=== PATIENT | male | born 1965 | race Caucasian/White ===

== ENCOUNTER 2018-03-19 12:02 | Emergency (ER) | payer OTHER ==
--- NOTE | 2018-03-19 12:53 | EDPHY ---
H & P Time Seen by Provider: 03/19/18 12:43 HPI/ROS: CHIEF COMPLAINT: Head injury HISTORY OF PRESENT ILLNESS: The patient is a 52-year-old male who presents emergency department after having a fainting episode last night. The patient states that he worked out may have been dehydrated. He went to work democr[employer] and had a glass of wine. He subsequently had 2 puffs of marijuana. He then had a syncopal episode. He struck the back of his head. He has a mild headache on his posterior head. He has no focal weakness or numbness. No nausea vomiting. No visual change. Patient denies any neck pain REVIEW OF SYSTEMS: 10 systems were reveiwed and are negative with the exception of the elements mentioned in the history of present illness. Past Medical/Surgical History: Negative Social history: Patient used marijuana last night. He had a drink of alcohol last night. Smoking Status: Never smoked Physical Exam: Vitals noted GENERAL: Well-appearing, in no acute distress, alert. HEENT: Eyes normal to inspection, normal pharynx, no signs of dehydration. NECK: Normal, supple. Nexus criteria negative. No tenderness to palpation RESPIRATORY: Clear to auscultation bilaterally, no rales, rhonchi or wheezing. CVS: Regular rate and rhythm, no rubs, murmurs, or gallops. ABDOMEN: Soft, nontender, nondistended, no organomegaly. BACK: Normal to inspection, no CVA tenderness. No spinal tenderness SKIN: Normal color, no rash, warm, dry. No pallor. EXTREMITIES: No pedal edema, no calf tenderness, no Homans sign or cords, no joint swelling. NEURO/PSYCH: Higher functions: Alert and Oriented x3. Normal speech and cognition. Normal mood and affect. Cranial nerves: Normal as tested. Cerebellar: Normal as tested. Good finger to nose, good [id number], normal gait. Peripheral exam: Normal motor exam. Normal sensation. Constitutional: Initial Vital Signs Temperature (C) 36.7 C 03/19/18 12:10 Heart Rate 73 03/19/18 12:10 Respiratory Rate 18 03/19/18 12:10 Blood Pressure 146/75 H 03/19/18 12:10 O2 Sat (%) 98 03/19/18 12:10 O2 Delivery Mode Room Air Allergies/Adverse Reactions: Penicillins Allergy (Unknown, Verified 03/19/18 12:16) as child Home Medications: Medication Instructions Recorded NK [No Known Home Meds] 03/19/18 Medical Decision Making - Diagnostics Imaging Results: Imaging Impressions Head CT 03/19/18 12:57 Impression: Negative noncontrast CT of the brain. 10 mm focus of cortical calcification involving the posterior high right parietal region which may be secondary to prior trauma or infectious/inflammatory etiology. Results called to Dr. Aurora Guaman at 1:30 PM at the time of the interpretation. ED Course/Re-evaluation: In the emergency department I discussed possible etiologies with the patient. I answered all his questions. An IV was placed. Patient given normal saline 5 mL IV for hydration. Laboratory studies and EKG were ordered. Because the patient's fall and headache head CT was ordered. EKG shows normal sinus rhythm, normal rate, normal axis, normal intervals. There are no ST or T-wave abnormalities. EKG is normal as interpreted by me. Head CT: Please refer the dictated report. No acute disease noted. I discussed the results with the patient. I answered all his questions. He was given warnings prior to leaving. He will return with worsening symptoms. Differential Diagnosis: My differential includes but is not limited to syncope, ACS, dysrhythmia, electrolyte abnormality, sugar abnormality, dehydration, closed-head injury, subarachnoid hemorrhage, subdural hematoma, epidural hematoma - Data Points Laboratory Results: Laboratory Results 03/19/18 13:14 03/19/18 13:14 03/19/18 03/19/18 03/19/18 13:16 13:14 13:14 WBC 6.40 10^3/uL 10^3/uL (3.80-9.50) RBC 4.54 10^6/uL 10^6/uL (4.40-6.38) Hgb 13.9 g/dL g/dL (13.7-17.5) Hct 41.1 % % (40.0-51.0) MCV 90.5 fL fL (81.5-99.8) MCH 30.6 pg pg (27.9-34.1) MCHC 33.8 g/dL g/dL (32.4-36.7) RDW 13.2 % % (11.5-15.2) Plt Count 194 10^3/uL 10^3/uL (150-400) MPV 11.4 fL fL (8.7-11.7) Neut % (Auto) 64.6 % % (39.3-74.2) Lymph % (Auto) 25.5 % % (15.0-45.0) Greenlee % (Auto) 8.3 % % (4.5-13.0) Eos % (Auto) 0.3 % L % (0.6-7.6) Baso % (Auto) 1.1 % % (0.3-1.7) Nucleat RBC Rel Count 0.0 % % (0.0-0.2) Absolute Neuts (auto) 4.14 10^3/uL 10^3/uL (1.70-6.50) Absolute Lymphs (auto) 1.63 10^3/uL 10^3/uL (1.00-3.00) Absolute Monos (auto) 0.53 10^3/uL 10^3/uL (0.30-0.80) Absolute Eos (auto) 0.02 10^3/uL L 10^3/uL (0.03-0.40) Absolute Basos (auto) 0.07 10^3/uL 10^3/uL (0.02-0.10) Absolute Nucleated RBC 0.00 10^3/uL 10^3/uL (0-0.01) Immature Gran % 0.2 % % (0.0-1.1) Immature Gran # 0.01 10^3/uL 10^3/uL (0.00-0.10) Sodium 142 mEq/L mEq/L (135-145) Potassium 4.0 mEq/L mEq/L (3.5-5.2) Chloride 104 mEq/L mEq/L (97-110) Carbon Dioxide 29 mEq/l mEq/l (22-31) Anion Gap 9 mEq/L mEq/L (6-14) BUN 9 mg/dL mg/dL (7-23) Creatinine 0.8 mg/dL mg/dL (0.7-1.3) Estimated GFR > 60 Glucose 99 mg/dL mg/dL (70-100) Calcium 9.3 mg/dL mg/dL (8.5-10.4) POC Troponin I 0.01 ng/mL ng/mL (0.00-0.08) Medications Given: Discontinued Medications Sodium Chloride (Ns) 500 mls @ 1,000 mls/hr IV EDNOW ONE PRN Reason: Protocol Stop: 03/19/18 13:25 Last Admin: 03/19/18 13:21 Dose: 500 mls Point of Care Test Results: Chemistry 03/19/18 13:16 POC Troponin I 0.01 ng/mL ng/mL (0.00-0.08) Departure - Departure Disposition: Home, Routine, Self-Care Clinical Impression: Syncope Qualifiers: Syncope type: unspecified Qualified Code(s): R55 - Syncope and collapse Head injury Qualifiers: Encounter type: initial encounter Qualified Code(s): S09.90XA - Unspecified injury of head, initial encounter Condition: Good Instructions: Syncope (ED), Head Injury (ED) Referrals: NONE *PRIMARY CARE P,. [Primary Care Provider] - As per Instructions
[2018-03-19] MEDS ORDERED: NS 500 ML IV ONE (12:56)
[2018-03-19 13:25] LABS: PLATELET COUNT 194 10^3/uL (150-400)
[2018-03-19 14:14] VITALS: BP 133/75
--- NOTE | 2018-03-19 15:16 | CPEKG ---
Test Reason : OPEN Blood Pressure : / mmHG Vent. Rate : 057 BPM Atrial Rate : 057 BPM P-R Int : 146 ms QRS Dur : 096 ms QT Int : 396 ms P-R-T Axes : 065 060 052 degrees QTc Int : 386 ms Sinus rhythm Probable left atrial enlargement Confirmed by Aurora Guaman ([id number]) on 03/19/2018 3:16:10 PM Referred By: Confirmed By:Aurora Guaman
== END 2018-03-19 14:39 | disposition home or self-care (01) ==
DX: S09.90XA Unspecified injury of head, initial encounter (principal); R55 Syncope and collapse; E86.9 Volume depletion, unspecified; W01.10XA Fall on same level from slipping, tripping and stumbling with subsequent striking against unspecified object, initial encounter; Y92.9 Unspecified place or not applicable; Y93.9 Activity, unspecified; Y99.9 Unspecified external cause status
CPT/HCPCS: 84484-PO